=== PATIENT | female | born 1980 | race Caucasian/White ===

== ENCOUNTER → 2020-06-03 | Day surgery (SDC) | payer OTHER ==
[~2020-06-03] MED LIST: FLONASE 0.05% N16 GM; HYOSCYAMINE0.125 MG PO; IBUPROFEN800 MG PO; LORATADINE10 MG PO; NIZORAL 2% CREA15 GM TOP; PREVACID30 MG PO; PROTONIX40 MG PO; VIVITROL IM; ZITHROMAX500 MG PO; ZOFRAN4 MG PO; [UNRECOGNIZED DRUG - OTHER] PO
== END | disposition home or self-care (01) ==
LOC: OR 06:54
PROVIDERS: Internal Medicine Gastroenterology
PROC: 0DB48ZX Excision of Esophagogastric Junction, Via Natural or Artificial Opening Endoscopic, Diagnostic (ICD-10-PCS; 2020-06-03)
PROC: 0DBB8ZX Excision of Ileum, Via Natural or Artificial Opening Endoscopic, Diagnostic (ICD-10-PCS; 2020-06-03)
PROC: 0DBE8ZX Excision of Large Intestine, Via Natural or Artificial Opening Endoscopic, Diagnostic (ICD-10-PCS; 2020-06-03)
PROC: 0DB98ZX Excision of Duodenum, Via Natural or Artificial Opening Endoscopic, Diagnostic (ICD-10-PCS; principal; 2020-06-03 10:13)
PROC: 0DB78ZX Excision of Stomach, Pylorus, Via Natural or Artificial Opening Endoscopic, Diagnostic (ICD-10-PCS; 2020-06-03 10:13)
DX: K21.00 Gastro-esophageal reflux disease with esophagitis, without bleeding (principal); K64.0 First degree hemorrhoids; K64.4 Residual hemorrhoidal skin tags; K31.89 Other diseases of stomach and duodenum; K29.80 Duodenitis without bleeding; K59.09 Other constipation; J45.909 Unspecified asthma, uncomplicated; K58.9 Irritable bowel syndrome, unspecified; F17.210 Nicotine dependence, cigarettes, uncomplicated; E66.9 Obesity, unspecified; Z68.31 Body mass index [BMI] 31.0-31.9, adult; Z88.2 Allergy status to sulfonamides; Z79.899 Other long term (current) drug therapy; Z20.822 Contact with and (suspected) exposure to COVID-19
CPT/HCPCS: 84703; J2704; J7040

== ENCOUNTER → 2021-01-20 | Outpatient (CLI) | payer OTHER | LOC: KOH-I 14:26 | DX: M54.2 Cervicalgia (principal) | CPT/HCPCS: 71046; 72040 ==

== ENCOUNTER 2021-07-30 05:13 | Emergency (ER) | payer OTHER ==
[2021-07-30 05:55] LABS: HEMOGLOBIN 13.1 gm/dl (12.3-15.3); RED BLOOD COUNT 4.03 M/UL (4.00-5.10); WHITE BLOOD COUNT 11.2 K/UL (4.5-11.0)
[2021-07-30 06:05] LABS: BUN/CREATININE RATIO 21 (0-10)
[2021-07-30] MEDS ORDERED: PREDNISONE 20 M20 MG PO (06:17)
[2021-07-30] MEDS ORDERED: IPRAT-ALBUT 0.5-3 ML INH (08:01)
== END 2021-07-30 08:22 | disposition home or self-care (01) ==
LOC: ER1 05:13
PROVIDERS: Student in an Organized Health Care Education/Training Program
DX: J44.1 Chronic obstructive pulmonary disease with (acute) exacerbation (principal); R06.02 Shortness of breath; K21.9 Gastro-esophageal reflux disease without esophagitis; F17.210 Nicotine dependence, cigarettes, uncomplicated
CPT/HCPCS: 71045; 80048; 82550; 82553; 84484; 85025; 85379; 93005; 94664; 96374; 99285; J1100

== ENCOUNTER → 2021-11-20 | Outpatient (CLI) | payer OTHER ==
[~2021-11-20] MED LIST changes: +IPRAT-ALBUT 0.5-3 ML INH; +PREDNISONE 20 M20 MG PO
== END ==
LOC: CT 11:00
DX: R31.9 Hematuria, unspecified (principal)